=== PATIENT | female | born 1985 | race Caucasian/White ===

== ENCOUNTER 2018-09-27 09:13 | Day surgery (SDC) | payer OTHER ==
[~2018-09-27 09:13] MED LIST: BUPIVACAINE HCL 0.5%-EPI 1:200000 INJ/PF 30 ML VIAL ONE; FENTANYL CITRATE INJ/PF 100 MCG/2 ML AMPUL ONE; LACTATED RINGERS 1000 ML IV PRN; LIDOCAINE 0.5% INJ-PF (5 MG/ML) 50 ML SDV SUBCUT PRN; MIDAZOLAM 2 MG/2 ML INJ ONE; PROMETHAZINE HCL INJ 25 MG/1 ML VIAL ONE
[2018-09-27] MEDS ORDERED: PROPOFOL INJ 200 MG/20 ML VIAL IV ONE (09:14)
[2018-09-27] MEDS ORDERED: ONDANSETRON HCL INJ/PF 4 MG/2 ML SDV ONE ×2 (09:14→11:50)
[2018-09-27] MEDS ORDERED: DEXAMETHASONE SOD PHOSPHATE INJ 4 MG/1 ML VIAL ONE (09:14)
[2018-09-27] MEDS ORDERED: EPHEDRINE SULFATE INJ 50 MG/1 ML AMPULE ONE (09:14)
[2018-09-27] MEDS ORDERED: CEFAZOLIN INJ 1 GM VIAL ONE (10:24)
[2018-09-27] MEDS ORDERED: MORPHINE SULFATE 10 MG/ML INJ IV PRN (10:34)
[2018-09-27] MEDS ORDERED: FENTANYL CITRATE INJ/PF 100 MCG/2 ML AMPUL IV PRN ×3 (10:34)
[2018-09-27] MEDS ORDERED: MEPERIDINE HCL/PF INJ 25 MG/1 ML DISP.SYRIN IV PRN (10:34)
[2018-09-27] MEDS ORDERED: PROMETHAZINE HCL INJ 25 MG/1 ML VIAL IV PRN ×2 (10:34)
[2018-09-27] MEDS ORDERED: DIPHENHYDRAMINE HCL 50 MG/ML VIAL IV PRN (10:34)
[2018-09-27] MEDS ORDERED: (PENDING PHARMACY ID) (Epinephrine [Epipen 2-Pak] 0.3 MG) IM PRN (10:35)
[2018-09-27] MEDS ORDERED: SUCCINYLCHOLINE CHLORIDE INJ 200 MG/10 ML VIAL ONE (10:53)
[2018-09-27] MEDS ORDERED: KETOROLAC TROMETHAMINE 60 MG/2 ML SDV ONE (10:53)
[2018-09-27] MEDS ORDERED: ACETAMINOPHEN 1,000 MG/100 ML RTUPB IV ONE (11:07)
[2018-09-27] MEDS ORDERED: OXYCODONE-ACETAMINOPHEN 5-325 MG TABLET PO PRN (11:41)
[2018-09-27] MEDS: FENTANYL CITRATE INJ/PF 100 MCG/2 ML AMPUL ONE ×2 (11:50→11:55)
[2018-09-27] MEDS ORDERED: OXYCODONE-ACETAMINOPHEN 5-325 MG TABLET ONE (12:38)
[2018-09-27 13:40] VITALS: BP 114/67
--- NOTE | 2018-09-27 13:47 | Discharge Summary ---
Discharge Summary (SDC) - Discharge Final Diagnosis: ;pilonidal cyst Discharge Date: 09/27/18 Condition: Good Forms: ASU Anesthesia D/C Instruction, Discharge POC-Surgical Service Referrals: JUAN CURIEL MD [ACTIVE STAFF] - GERTRUDIS PEOPLES DO [Primary Care Provider] - Discharge Diet: As Tolerated Respiratory Treatments at Home: Deep Breathing/Coughing Discharge Activity: Activity As Tolerated, Balance Activity w/Rest, No Lifting Over 10 Pounds, No tub bath Home Care Assistance: Provided by Family Report the Following to Your Physician Immediately: Shortness of Breath, Nausea, Vomiting, Increase in Pain - may shower on monday dont do sitz baths remove dressing monday., Fever over 101 Degrees, Unusual Bleeding, Redness, Swelling, Warmth, Drainage-Foul Smelling
--- NOTE | 2018-09-27 15:17 | OPERATIVE REPORT E ---
Operative Report NAME: JASS PATTEN : 1985 AGE: 33Y DATE OF SURGERY: 09/27/2018 ROOM: PREOPERATIVE DIAGNOSIS: PILONIDAL CYST VERSUS BUTTOCK ABSCESS AND CHRONIC DIARRHEA. POSTOPERATIVE DIAGNOSIS: PILONIDAL CYST VERSUS BUTTOCK ABSCESS AND CHRONIC DIARRHEA. OPERATION: COLONOSCOPY AND PILONIDAL CYSTECTOMY. SURGEON: JUAN CURIEL M.D. MOVIE ACTOR: Meseret Reddy PA-C, who assisted in all aspects of the procedure including wound retraction, dissection, and wound closure. 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 She has had it previously incised and drained, but it has continued to recur. She presented with those complaints and therefore we felt that a colonoscopy is necessary to rule out any colonic pathology because of her chronic diarrhea as well as an excision of this buttock cleft cyst that may affect the pilonidal cyst; however, it was off midline. PROCEDURE: The patient was brought to the operating room, awake, alert, and in stable condition. She was placed on the operating table in a left lateral decubitus position after general anesthesia. After appropriate timeout, we used the Olympus colonoscope and passed it easily into the rectum, and this was done after digital rectal exam which revealed no evidence of significant pathology nor could I palpate any kind of swelling next to that left-sided buttock cyst. After the rectal exam, I used the Olympus colonoscope and passed it into the rectum, traversed the sigmoid colon, up the descending colon, transverse colon, and down the ascending colon to the ileocecal valve. The bowel prep was excellent and we identified the appendiceal orifice and then slowly began withdrawing the scope. There was no evidence of any polyp formation at all within the cecum, the ascending colon, transverse colon, splenic flexure, descending colon, or sigmoid colon. In fact, the entire mucosal anatomy of the colon appeared to be normal. We withdrew the scope slowly, and at the termination of this, we then placed the patient in a jackknife position and attention was turned to the buttock cleft cyst. I made an elliptical incision around it. Again, it was just off to the right of midline. The incision was done with a 15 blade. We carried our dissection down through subcutaneous tissue with Bovie cautery. As we came medial to the cyst, we noted some granulation tissue and then a tract. I used a small fistula probe, placed it into the tract and it seemed that the tract was in midline toward the buttock cleft. I therefore raised a small skin flap staying on top of the tract, and continued our dissection immediately until I came to the end of the tract, where the probe was demarcating. It should noted that the tract seemed to proceed posteriorly up toward the midline skin. We excised the complete tract. We then had two separate wounds, one where the tract ended in the midline buttock skin that was excised with a 15 blade, which was about 1 cm wide excision, and the initial incision, which was elliptical around the chronic draining sinus. After copiously irrigating both wounds with normal saline and suctioned dry, we closed them separately, but we closed them with Nylon suture 3-0. There was no evidence of any purulence within the tract itself. After adequate skin closure, a sterile dressing was applied, which completed the procedure. Estimated blood loss was less than 25 mL. Sponge and needle counts were correct x2. The patient was awakened in the operating room, extubated, transferred to recovery in stable condition. No complications. DICTATING PHYSICIAN: JUAN CURIEL M.D. [id number] PHY#: [id number] ID: [id number] JOB#: [id number] ACCT: [id number] cc:JUAN CURIEL M.D. >
== END 2018-09-27 13:50 | disposition home or self-care (01) ==
LOC: OROUT 09:13
PROVIDERS: ATTEND Surgery
DX: R19.7 Diarrhea, unspecified (principal); L05.91 Pilonidal cyst without abscess
CPT/HCPCS: 81025; 88304 ×2; 11770; 45378; J2250; J0690; J1100; J1885; J3010; J2550; J0330; J2405; J2704; J0131; 300; J3490